=== PATIENT | male | born 1955 | race Caucasian/White ===

== ENCOUNTER 2020-02-22 19:15 | Inpatient (IN) | payer MEDICARE, MEDICAID ==
[~2020-02-22] VITALS: Ht 182.9 cm; Wt 86.4 kg
[~2020-02-22 19:15] MED LIST: CHLO100T31 PO; GABA-1181 PO; MIRT30 PO
[2020-02-22] MEDS ORDERED: HYDR-4031 PO (19:44)
[2020-02-22] MEDS ORDERED: AMLO-257 PO (19:44)
[2020-02-22] MEDS ORDERED: DULO20CA27 PO ×2 (19:44→19:49)
[2020-02-22] MEDS ORDERED: TRAZ-186 PO (19:49)
[2020-02-22 20:09] LABS: BASOPHILS % (AUTO) 1.1 % (0.0-2.0); EOSINOPHILS % (AUTO) 1.5 % (1.0-6.0); HEMOGLOBIN 15.1 g/dL (13.5-17.5); LYMPHOCYTES # (AUTO) 2.1 K/uL (1.0-4.8); LYMPHOCYTES % (AUTO) 18.4 % (22.0-44.0); MEAN CORPUSCULAR HEMOGLOBIN 33.3 pg (26.0-34.0); MEAN CORPUSCULAR HGB CONC 33.6 G/dL (31.0-37.0); MEAN CORPUSCULAR VOLUME 99 fL (80-100); MONOCYTES # (AUTO) 0.6 K/uL (0.1-1.0); NEUTROPHILS # (AUTO) 8.6 K/uL (1.8-7.7); PLATELET COUNT (AUTO) 307 K/uL (150-450); RED BLOOD CELL COUNT(AUTO) 4.54 MIL/uL (4.50-5.90); RED CELL DISTRIBUTION WIDTH 14.9 % (11.5-14.5)
[2020-02-22 20:16] LABS: ANION GAP 4 mmol/L (8-16); CALCIUM, TOTAL 8.8 mg/dL (8.8-10.5); CARBON DIOXIDE 30 mmol/L (22-29); CHLORIDE 103 mmol/L (98-107); CREATININE 0.94 mg/dL (0.60-1.30); GLOMERULAR FILTR. RATE CALC > 60 mL/min (>60); GLUCOSE,RANDOM 98 mg/dL (70-110); POTASSIUM 3.6 mmol/L (3.5-5.1); SODIUM SERUM 137 mmol/L (136-145); UREA NITROGEN, BLOOD 7 mg/dL (7-18)
[2020-02-22 20:22] LABS: ACETAMINOPHEN < 2 mcg/mL (10-30); ALANINE AMINOTRANSFERASE 18 U/L (12-78); ALBUMIN 3.4 g/dL (3.4-5.0); ALKALINE PHOSPHATASE 94 U/L (46-116); ASPARTATE AMINOTRANSFERASE 12 U/L (15-37); BILIRUBIN,TOTAL 0.7 mg/dL (0.1-1.0); TOTAL PROTEIN, SERUM 7.4 g/dL (6.4-8.2)
[2020-02-22 20:29] LABS: SALICYLATE < 2.8 mg/dL (2.8-20.0)
[2020-02-23 01:13] VITALS: BP 146/81
[2020-02-23] MEDS: ZOLPIDEM TARTRATE 10 MG TABLET PO PRN (01:31)
[2020-02-23 01:50] LABS: AMPHET/METH SCREEN,URINE NEGATIVE (NEGATIVE); BARBITURATE SCREEN, URINE NEGATIVE (NEGATIVE); BENZODIAZEPINES SCREEN,URINE POSITIVE (NEGATIVE); CANNABINOID SCREEN,URINE NEGATIVE (NEGATIVE); COCAINE SCREEN,URINE NEGATIVE (NEGATIVE); METHADONE SCREEN, URINE NEGATIVE (NEGATIVE); OPIATE SCREEN,URINE NEGATIVE (NEGATIVE)
[2020-02-23 02:05] LABS: PHENCYCLIDINE SCREEN,URINE NEGATIVE (NEGATIVE)
[2020-02-23] MEDS ORDERED: PNEUMOCOCCAL VACCINE POLYVALENT 0.5 ML VIAL [PPSV23] IM ONE (06:00)
[2020-02-23] MEDS ORDERED: ALBUTEROL SULFATE HFA 90 MCG/PUFF 8 GM INHALER IH PRN (07:45)
[2020-02-23] MEDS ORDERED: ONDANSETRON HCL 4 MG TABLET PO PRN (07:45)
[2020-02-23] MEDS ORDERED: MAG HYDROX/AL HYDROX/SIMETH ES 30 ML SUSPENSION UDCUP PO PRN (07:45)
[2020-02-23] MEDS ORDERED: DOCUSATE SODIUM 100 MG CAPSULE PO PRN (07:45)
[2020-02-23] MEDS ORDERED: LOPERAMIDE HCL 2 MG CAPSULE PO PRN (07:45)
[2020-02-23] MEDS ORDERED: CloNIDine HCL 0.1 MG TABLET PO PRN (07:45)
[2020-02-23] MEDS ORDERED: IBUPROFEN 400 MG TABLET PO PRN (07:45)
[2020-02-23] MEDS ORDERED: ACETAMINOPHEN 325 MG TABLET PO PRN (07:45)
[2020-02-23] MEDS ORDERED: GuaiFENesin/D-METHORPHAN [SUGAR-FREE] 200-20MG/10 ML SYRUP UDCUP PO PRN (07:45)
[2020-02-23] MEDS ORDERED: MAGNESIUM HYDROXIDE SUSPENSION 30 ML UDCUP PO PRN (07:45)
[2020-02-23] MEDS ORDERED: PETROLATUM,WHITE 28 GM JELLY TP PRN (07:45)
[2020-02-23 08:02] VITALS: BP 105/59
[2020-02-23 08:19] LABS: CHOL/HDL RATIO 3.5 (4.2-7.3)
[2020-02-23 08:35] VITALS: BP 116/61
[2020-02-23] MEDS: AmLODIPine BESYLATE 5 MG TABLET PO SCH (08:36)
[2020-02-23] MEDS: DULoxetine HCL 60 MG CAPSULE PO SCH (09:10)
[2020-02-23] MEDS: GABAPENTIN 300 MG CAPSULE PO SCH ×3 (09:10→16:29)
[2020-02-23 16:07] VITALS: BP 131/62
[2020-02-23] MEDS: TraZODone HCL 100 MG TABLET PO SCH (20:50)
[2020-02-24 00:16] VITALS: BP 130/61
[2020-02-24 08:05] VITALS: BP 118/60
[2020-02-24] MEDS: GABAPENTIN 300 MG CAPSULE PO SCH ×3 (08:43→16:31)
[2020-02-24] MEDS: DULoxetine HCL 60 MG CAPSULE PO SCH (08:47)
[2020-02-24] MEDS: AmLODIPine BESYLATE 5 MG TABLET PO SCH (09:00)
[2020-02-24 16:12] VITALS: BP 116/64
[2020-02-24] MEDS: TraZODone HCL 100 MG TABLET PO SCH (20:35)
[2020-02-25 05:42] VITALS: BP 128/72
[2020-02-25] MEDS: GABAPENTIN 300 MG CAPSULE PO SCH ×3 (08:30→16:15)
[2020-02-25] MEDS: DULoxetine HCL 60 MG CAPSULE PO SCH (08:30)
[2020-02-25] MEDS: AmLODIPine BESYLATE 5 MG TABLET PO SCH (08:30)
[2020-02-25 08:36] LABS: APPEARANCE,URINE CLEAR (CLEAR); GLUCOSE, URINE (UA) NEGATIVE (NEGATIVE); KETONES,URINE NEGATIVE (NEGATIVE); LEUKOCYTE ESTERASE ,URINE NEGATIVE (NEGATIVE); NITRATE,URINE NEGATIVE (NEGATIVE); OCCULT BLOOD,URINE NEGATIVE (NEGATIVE); PH,URINE 6.5 (5.0-8.0); PROTEIN,URINE NEGATIVE (NEGATIVE)
[2020-02-25 08:57] LABS: BILIRUBIN,URINE PRELIM. POSITIVE (NEGATIVE)
[2020-02-25 08:58] VITALS: BP 113/57
[2020-02-25 16:06] VITALS: BP 106/64
[2020-02-25] MEDS: TraZODone HCL 100 MG TABLET PO SCH (20:08)
[2020-02-25] MEDS: NICOTINE 14 MG/24 HOUR PATCH TD PRN (20:28)
[2020-02-26 00:26] VITALS: BP 118/63
[2020-02-26] MEDS: ZOLPIDEM TARTRATE 10 MG TABLET PO PRN (00:26)
[2020-02-26 03:36] VITALS: BP 126/65
[2020-02-26] MEDS: LORazepam 2 MG TABLET PO PRN ×2 (03:36→21:13)
[2020-02-26] MEDS: GABAPENTIN 300 MG CAPSULE PO SCH ×3 (08:29→16:21)
[2020-02-26] MEDS: AmLODIPine BESYLATE 5 MG TABLET PO SCH (08:29)
[2020-02-26] MEDS: DULoxetine HCL 60 MG CAPSULE PO SCH (08:29)
[2020-02-26 09:38] VITALS: BP 111/66
[2020-02-26 16:07] VITALS: BP 108/60
[2020-02-26] MEDS: TraZODone HCL 100 MG TABLET PO SCH (20:17)
[2020-02-26] MEDS: NICOTINE 14 MG/24 HOUR PATCH TD PRN (20:57)
[2020-02-27 01:17] VITALS: BP 110/63
[2020-02-27 08:06] VITALS: BP 130/76
[2020-02-27] MEDS: AmLODIPine BESYLATE 5 MG TABLET PO SCH (09:15)
[2020-02-27] MEDS: GABAPENTIN 300 MG CAPSULE PO SCH ×3 (09:15→16:29)
[2020-02-27] MEDS: DULoxetine HCL 60 MG CAPSULE PO SCH (09:15)
[2020-02-27 16:02] VITALS: BP 110/67
[2020-02-27] MEDS: TraZODone HCL 100 MG TABLET PO SCH (20:57)
[2020-02-28] VITALS: BP 111/62
[2020-02-28 08:02] VITALS: BP 128/96
[2020-02-28] MEDS: AmLODIPine BESYLATE 5 MG TABLET PO SCH (09:08)
[2020-02-28] MEDS: GABAPENTIN 300 MG CAPSULE PO SCH ×3 (09:08→16:31)
[2020-02-28] MEDS: DULoxetine HCL 60 MG CAPSULE PO SCH (09:08)
[2020-02-28 16:01] VITALS: BP 103/62
[2020-02-28] MEDS: TraZODone HCL 100 MG TABLET PO SCH (21:01)
[2020-02-28] MEDS: LORazepam 2 MG TABLET PO PRN (21:24)
[2020-02-29 00:22] VITALS: BP 104/60
[2020-02-29 08:01] VITALS: BP 115/61
[2020-02-29] MEDS: AmLODIPine BESYLATE 5 MG TABLET PO SCH (08:06)
[2020-02-29] MEDS: GABAPENTIN 300 MG CAPSULE PO SCH ×3 (08:06→16:19)
[2020-02-29] MEDS: DULoxetine HCL 60 MG CAPSULE PO SCH (08:06)
[2020-02-29] MEDS: LORazepam 2 MG TABLET PO PRN ×2 (13:26→21:34)
[2020-02-29 16:24] VITALS: BP 116/62
[2020-02-29] MEDS: NICOTINE 14 MG/24 HOUR PATCH TD PRN (16:37)
[2020-02-29] MEDS: TraZODone HCL 100 MG TABLET PO SCH (20:52)
[2020-03-01 06:03] VITALS: BP 116/63
[2020-03-01 08:33] VITALS: BP 104/62
[2020-03-01] MEDS: AmLODIPine BESYLATE 5 MG TABLET PO SCH (09:36)
[2020-03-01] MEDS: GABAPENTIN 300 MG CAPSULE PO SCH ×3 (09:36→16:33)
[2020-03-01] MEDS: DULoxetine HCL 60 MG CAPSULE PO SCH (09:45)
[2020-03-01 16:02] VITALS: BP 122/69
[2020-03-01] MEDS: TraZODone HCL 100 MG TABLET PO SCH (20:23)
[2020-03-01] MEDS: LORazepam 2 MG TABLET PO PRN (21:43)
[2020-03-02 05:29] VITALS: BP 104/63
[2020-03-02 08:14] VITALS: BP 116/68
[2020-03-02] MEDS: AmLODIPine BESYLATE 5 MG TABLET PO SCH (08:26)
[2020-03-02] MEDS: GABAPENTIN 300 MG CAPSULE PO SCH ×3 (08:26→16:30)
[2020-03-02] MEDS: DULoxetine HCL 60 MG CAPSULE PO SCH (08:26)
[2020-03-02 16:06] VITALS: BP 109/62
[2020-03-02] MEDS: TraZODone HCL 100 MG TABLET PO SCH (20:43)
[2020-03-02] MEDS: LORazepam 2 MG TABLET PO PRN (21:43)
[2020-03-03 05:38] VITALS: BP 110/72
[2020-03-03 08:02] VITALS: BP 113/62
[2020-03-03] MEDS: DULoxetine HCL 60 MG CAPSULE PO SCH (08:55)
[2020-03-03] MEDS: GABAPENTIN 300 MG CAPSULE PO SCH ×3 (08:55→16:36)
[2020-03-03] MEDS: AmLODIPine BESYLATE 5 MG TABLET PO SCH (08:55)
[2020-03-03 16:02] VITALS: BP 110/66
[2020-03-03] MEDS: ARIPiprazole 2 MG TABLET PO SCH (21:04)
[2020-03-03] MEDS: TraZODone HCL 100 MG TABLET PO SCH (21:04)
[2020-03-03] MEDS: LORazepam 2 MG TABLET PO PRN (21:24)
[2020-03-04 00:02] VITALS: BP 108/69
[2020-03-04] MEDS: DULoxetine HCL 60 MG CAPSULE PO SCH (08:11)
[2020-03-04] MEDS: AmLODIPine BESYLATE 5 MG TABLET PO SCH (08:12)
[2020-03-04] MEDS: NICOTINE 14 MG/24 HOUR PATCH TD SCH (08:12)
[2020-03-04] MEDS: GABAPENTIN 300 MG CAPSULE PO SCH ×3 (08:12→18:05)
[2020-03-04 08:41] VITALS: BP 112/72
[2020-03-04 16:13] VITALS: BP 124/88
[2020-03-04] MEDS: ARIPiprazole 2 MG TABLET PO SCH (20:43)
[2020-03-04] MEDS: TraZODone HCL 100 MG TABLET PO SCH (20:43)
[2020-03-05 06:14] VITALS: BP 120/79
[2020-03-05 09:02] VITALS: BP 106/65
[2020-03-05] MEDS: AmLODIPine BESYLATE 5 MG TABLET PO SCH (09:13)
[2020-03-05] MEDS: GABAPENTIN 300 MG CAPSULE PO SCH ×3 (09:13→17:07)
[2020-03-05] MEDS: DULoxetine HCL 60 MG CAPSULE PO SCH (09:14)
[2020-03-05] MEDS: NICOTINE 14 MG/24 HOUR PATCH TD SCH (09:15)
[2020-03-05] MEDS: LORazepam 2 MG TABLET PO PRN (14:43)
[2020-03-05 16:04] VITALS: BP 109/71
[2020-03-05] MEDS: TraZODone HCL 100 MG TABLET PO SCH (21:17)
[2020-03-05] MEDS: ARIPiprazole 2 MG TABLET PO SCH (21:17)
[2020-03-05] MEDS: ZOLPIDEM TARTRATE 10 MG TABLET PO PRN (22:32)
[2020-03-06 06:47] VITALS: BP 111/68
[2020-03-06 08:47] VITALS: BP 130/60
[2020-03-06] MEDS: GABAPENTIN 300 MG CAPSULE PO SCH ×3 (08:49→16:26)
[2020-03-06] MEDS: AmLODIPine BESYLATE 5 MG TABLET PO SCH (08:49)
[2020-03-06] MEDS: NICOTINE 14 MG/24 HOUR PATCH TD SCH (08:56)
[2020-03-06] MEDS: DULoxetine HCL 30 MG CAPSULE PO SCH (09:36)
[2020-03-06 16:03] VITALS: BP 109/65
[2020-03-06] MEDS: LORazepam 2 MG TABLET PO PRN (17:01)
[2020-03-06] MEDS: TraZODone HCL 100 MG TABLET PO SCH (20:25)
[2020-03-06] MEDS: ARIPiprazole 2 MG TABLET PO SCH (20:25)
[2020-03-07 00:44] VITALS: BP 111/67
[2020-03-07 08:10] VITALS: BP 116/74
[2020-03-07] MEDS: NICOTINE 14 MG/24 HOUR PATCH TD SCH (08:13)
[2020-03-07] MEDS: AmLODIPine BESYLATE 5 MG TABLET PO SCH (08:13)
[2020-03-07] MEDS: GABAPENTIN 300 MG CAPSULE PO SCH ×3 (08:13→16:31)
[2020-03-07] MEDS: DULoxetine HCL 30 MG CAPSULE PO SCH (08:13)
[2020-03-07] MEDS: LORazepam 2 MG TABLET PO PRN (15:55)
[2020-03-07 16:03] VITALS: BP 120/60
[2020-03-07] MEDS: ARIPiprazole 2 MG TABLET PO SCH (20:59)
[2020-03-07] MEDS: TraZODone HCL 100 MG TABLET PO SCH (21:00)
[2020-03-08 05:54] VITALS: BP 133/66
[2020-03-08 08:03] VITALS: BP 114/68
[2020-03-08] MEDS: AmLODIPine BESYLATE 5 MG TABLET PO SCH (08:28)
[2020-03-08] MEDS: NICOTINE 14 MG/24 HOUR PATCH TD SCH (08:28)
[2020-03-08] MEDS: DULoxetine HCL 30 MG CAPSULE PO SCH (08:28)
[2020-03-08] MEDS: GABAPENTIN 300 MG CAPSULE PO SCH ×3 (08:28→16:32)
[2020-03-08] MEDS: LORazepam 2 MG TABLET PO PRN (12:49)
[2020-03-08 16:02] VITALS: BP 114/62
[2020-03-08] MEDS: ARIPiprazole 2 MG TABLET PO SCH (20:58)
[2020-03-08] MEDS: TraZODone HCL 100 MG TABLET PO SCH (20:59)
[2020-03-09 05:42] VITALS: BP 131/86
[2020-03-09 08:05] VITALS: BP 116/70
[2020-03-09] MEDS: AmLODIPine BESYLATE 5 MG TABLET PO SCH (08:10)
[2020-03-09] MEDS: DULoxetine HCL 30 MG CAPSULE PO SCH (08:10)
[2020-03-09] MEDS: GABAPENTIN 300 MG CAPSULE PO SCH ×3 (08:10→16:51)
[2020-03-09] MEDS: NICOTINE 14 MG/24 HOUR PATCH TD SCH (08:11)
[2020-03-09 16:02] VITALS: BP 111/63
[2020-03-09] MEDS: LORazepam 2 MG TABLET PO PRN (16:51)
[2020-03-09] MEDS: ARIPiprazole 2 MG TABLET PO SCH (20:35)
[2020-03-09] MEDS: TraZODone HCL 100 MG TABLET PO SCH (20:36)
[2020-03-10 05:51] VITALS: BP 111/64
[2020-03-10 07:58] LABS: BASOPHILS % (AUTO) 0.5 % (0.0-2.0); EOSINOPHILS % (AUTO) 8.1 % (1.0-6.0); HEMATOCRIT 36.3 % (41-53); LYMPHOCYTES # (AUTO) 1.7 K/uL (1.0-4.8); LYMPHOCYTES % (AUTO) 47.1 % (22.0-44.0); MEAN CORPUSCULAR HGB CONC 33.1 G/dL (31.0-37.0); MEAN CORPUSCULAR VOLUME 91 fL (80-100); MONOCYTES # (AUTO) 0.5 K/uL (0.1-1.0); MONOCYTES % (AUTO) 12.7 % (2.0-9.0); NEUTROPHILS # (AUTO) 1.2 K/uL (1.8-7.7); NEUTROPHILS % (AUTO) 31.6 % (40.0-70.0); PLATELET COUNT (AUTO) 230 K/uL (150-450); RED CELL DISTRIBUTION WIDTH 13.9 % (11.5-14.5)
[2020-03-10 08:06] VITALS: BP 120/74
[2020-03-10] MEDS: GABAPENTIN 300 MG CAPSULE PO SCH ×3 (08:25→16:25)
[2020-03-10] MEDS: NICOTINE 14 MG/24 HOUR PATCH TD SCH (08:25)
[2020-03-10] MEDS: DULoxetine HCL 30 MG CAPSULE PO SCH (08:25)
[2020-03-10] MEDS: OXYBUTYNIN CHLORIDE 5 MG TABLET PO SCH (08:25)
[2020-03-10] MEDS: AmLODIPine BESYLATE 5 MG TABLET PO SCH (08:25)
[2020-03-10] MEDS: LORazepam 2 MG TABLET PO PRN (19:20)
[2020-03-10 19:22] VITALS: BP 110/65
[2020-03-10] MEDS: TraZODone HCL 100 MG TABLET PO SCH (20:49)
[2020-03-10] MEDS: ARIPiprazole 5 MG TABLET PO SCH (20:49)
[2020-03-11 06:19] VITALS: BP 129/76
[2020-03-11 08:03] LABS: COVID AG,FIA SOURCE NASOPHARYNGEAL
[2020-03-11 08:08] VITALS: BP 126/72
[2020-03-11] MEDS: DULoxetine HCL 30 MG CAPSULE PO SCH (08:37)
[2020-03-11] MEDS: OXYBUTYNIN CHLORIDE 5 MG TABLET PO SCH (08:37)
[2020-03-11] MEDS: GABAPENTIN 300 MG CAPSULE PO SCH ×3 (08:37→16:25)
[2020-03-11] MEDS: AmLODIPine BESYLATE 5 MG TABLET PO SCH (08:37)
[2020-03-11] MEDS: NICOTINE 14 MG/24 HOUR PATCH TD SCH (08:38)
[2020-03-11 16:02] VITALS: BP 108/67
[2020-03-11] MEDS: LORazepam 2 MG TABLET PO PRN (17:06)
[2020-03-11] MEDS: ARIPiprazole 5 MG TABLET PO SCH (20:25)
[2020-03-11] MEDS: HALOPERIDOL 5 MG TABLET PO PRN (20:25)
[2020-03-11] MEDS: TraZODone HCL 100 MG TABLET PO SCH (21:12)
[2020-03-12 00:54] VITALS: BP 109/76
[2020-03-12 08:07] VITALS: BP 134/68
[2020-03-12] MEDS: AmLODIPine BESYLATE 5 MG TABLET PO SCH (08:48)
[2020-03-12] MEDS: NICOTINE 14 MG/24 HOUR PATCH TD SCH (08:48)
[2020-03-12] MEDS: DULoxetine HCL 30 MG CAPSULE PO SCH (08:48)
[2020-03-12] MEDS: GABAPENTIN 300 MG CAPSULE PO SCH ×3 (08:50→16:22)
[2020-03-12] MEDS: OXYBUTYNIN CHLORIDE 5 MG TABLET PO SCH (08:50)
[2020-03-12 16:13] VITALS: BP 112/67
[2020-03-12] MEDS: LORazepam 2 MG TABLET PO PRN (18:38)
[2020-03-12] MEDS: ARIPiprazole 5 MG TABLET PO SCH (20:44)
[2020-03-12] MEDS: TraZODone HCL 100 MG TABLET PO SCH (21:22)
[2020-03-13 06:40] VITALS: BP 116/65
[2020-03-13 08:24] VITALS: BP 129/65
[2020-03-13] MEDS: AmLODIPine BESYLATE 5 MG TABLET PO SCH (08:52)
[2020-03-13] MEDS: GABAPENTIN 300 MG CAPSULE PO SCH ×3 (08:52→16:29)
[2020-03-13] MEDS: DULoxetine HCL 30 MG CAPSULE PO SCH (08:52)
[2020-03-13] MEDS: NICOTINE 14 MG/24 HOUR PATCH TD SCH (09:12)
[2020-03-13] MEDS: OXYBUTYNIN CHLORIDE 5 MG TABLET PO SCH (10:03)
[2020-03-13] MEDS: LORazepam 2 MG TABLET PO PRN (13:22)
[2020-03-13] MEDS: HALOPERIDOL 5 MG TABLET PO PRN (16:01)
[2020-03-13 16:23] VITALS: BP 121/74
[2020-03-13] MEDS: ARIPiprazole 5 MG TABLET PO SCH (21:28)
[2020-03-13] MEDS: TraZODone HCL 100 MG TABLET PO SCH (21:29)
[2020-03-14 00:16] VITALS: BP 129/78
[2020-03-14 08:25] VITALS: BP 113/74
[2020-03-14] MEDS: GABAPENTIN 300 MG CAPSULE PO SCH ×3 (08:40→16:26)
[2020-03-14] MEDS: NICOTINE 14 MG/24 HOUR PATCH TD SCH (08:41)
[2020-03-14] MEDS: AmLODIPine BESYLATE 5 MG TABLET PO SCH (08:41)
[2020-03-14] MEDS: DULoxetine HCL 30 MG CAPSULE PO SCH (08:48)
[2020-03-14] MEDS: OXYBUTYNIN CHLORIDE 5 MG TABLET PO SCH (08:49)
[2020-03-14 16:02] VITALS: BP 117/70
[2020-03-14] MEDS: ARIPiprazole 5 MG TABLET PO SCH (20:22)
[2020-03-14] MEDS: TraZODone HCL 100 MG TABLET PO SCH (20:22)
[2020-03-15 05:42] VITALS: BP 108/60
[2020-03-15] MEDS: AmLODIPine BESYLATE 5 MG TABLET PO SCH (08:33)
[2020-03-15] MEDS: OXYBUTYNIN CHLORIDE 5 MG TABLET PO SCH (08:33)
[2020-03-15] MEDS: GABAPENTIN 300 MG CAPSULE PO SCH ×3 (08:33→16:16)
[2020-03-15] MEDS: NICOTINE 14 MG/24 HOUR PATCH TD SCH (08:33)
[2020-03-15] MEDS: DULoxetine HCL 30 MG CAPSULE PO SCH (08:33)
[2020-03-15 09:01] VITALS: BP 121/66
[2020-03-15] MEDS: LORazepam 2 MG TABLET PO PRN ×2 (13:00→21:00)
[2020-03-15 16:29] VITALS: BP 112/60
[2020-03-15] MEDS: ARIPiprazole 5 MG TABLET PO SCH (20:13)
[2020-03-15] MEDS: TraZODone HCL 100 MG TABLET PO SCH (20:13)
[2020-03-16 05:50] VITALS: BP 100/60
[2020-03-16] MEDS: GABAPENTIN 300 MG CAPSULE PO SCH ×2 (08:11→13:05)
[2020-03-16] MEDS: NICOTINE 14 MG/24 HOUR PATCH TD SCH (08:11)
[2020-03-16] MEDS: OXYBUTYNIN CHLORIDE 5 MG TABLET PO SCH (08:12)
[2020-03-16] MEDS: AmLODIPine BESYLATE 5 MG TABLET PO SCH (08:12)
[2020-03-16] MEDS: DULoxetine HCL 30 MG CAPSULE PO SCH (08:12)
[2020-03-16 08:24] VITALS: BP 111/60
[2020-03-16] MEDS ORDERED: OXYB5XL PO (12:04)
[2020-03-16] MEDS ORDERED: ARIP5TAB8 PO (12:06)
== END 2020-03-16 14:03 | disposition home or self-care (01) | DRG 885 ==
LOC: EMS 19:16 → B2X 21:34
PROVIDERS: ADMIT Psychiatry & Neurology Child & Adolescent Psychiatry; ATTEND Psychiatry & Neurology Child & Adolescent Psychiatry
DX: F25.1 Schizoaffective disorder, depressive type (principal); R45.851 Suicidal ideations; G62.9 Polyneuropathy, unspecified; F17.200 Nicotine dependence, unspecified, uncomplicated; F10.10 Alcohol abuse, uncomplicated; D72.829 Elevated white blood cell count, unspecified; I10 Essential (primary) hypertension; R10.13 Epigastric pain; F41.9 Anxiety disorder, unspecified; Z20.828 Contact with and (suspected) exposure to other viral communicable diseases; Z59.0 Homelessness; Z91.5 Personal history of self-harm; Z79.899 Other long term (current) drug therapy
CPT/HCPCS: 87081; 87426; 93005; G0480; G0481

== ENCOUNTER 2021-02-03 22:04 | Inpatient (IN) | payer MEDICARE, MEDICAID ==
[~2021-02-03] VITALS: Ht 182.9 cm; Wt 84.8 kg
[~2021-02-03 22:04] MED LIST changes: +AMLO-257 PO; +ARIP5TAB37 PO; -CHLO100T31 PO; +DULO20CA27 PO; -MIRT30 PO; +OXYB-34 PO; +TRAZ-186 PO
[2021-02-03 23:00] LABS: BASOPHILS % (AUTO) 0.6 % (0.0-2.0); EOSINOPHILS % (AUTO) 1.7 % (1.0-6.0); HEMATOCRIT 44.2 % (41-53); HEMOGLOBIN 14.8 g/dL (13.5-17.5); LYMPHOCYTES # (AUTO) 2.1 K/uL (1.0-4.8); LYMPHOCYTES % (AUTO) 24.2 % (22.0-44.0); MEAN CORPUSCULAR HEMOGLOBIN 32.7 pg (26.0-34.0); MEAN CORPUSCULAR HGB CONC 33.5 G/dL (31.0-37.0); MEAN CORPUSCULAR VOLUME 98 fL (80-100); NEUTROPHILS # (AUTO) 5.5 K/uL (1.8-7.7); NEUTROPHILS % (AUTO) 62.5 % (40.0-70.0); PLATELET COUNT (AUTO) 310 K/uL (150-450); RED BLOOD CELL COUNT(AUTO) 4.53 MIL/uL (4.50-5.90); RED CELL DISTRIBUTION WIDTH 14.3 % (11.5-14.5)
[2021-02-03 23:01] LABS: COVID AG,FIA SOURCE NASOPHARYNGEAL
[2021-02-03 23:09] LABS: ANION GAP 11 mmol/L (8-16); CALCIUM, TOTAL 8.6 mg/dL (8.8-10.5); CARBON DIOXIDE 28 mmol/L (22-29); CHLORIDE 101 mmol/L (98-107); CREATININE 0.61 mg/dL (0.60-1.30); GLOMERULAR FILTR. RATE CALC > 60 mL/min (>60); GLUCOSE,RANDOM 89 mg/dL (70-110); POTASSIUM 3.1 mmol/L (3.5-5.1); SODIUM SERUM 140 mmol/L (136-145); UREA NITROGEN, BLOOD 11 mg/dL (7-18)
[2021-02-03 23:15] LABS: ALANINE AMINOTRANSFERASE 23 U/L (12-78); ALBUMIN 3.6 g/dL (3.4-5.0); ALKALINE PHOSPHATASE 70 U/L (46-116); ASPARTATE AMINOTRANSFERASE 17 U/L (15-37); BILIRUBIN,TOTAL 0.4 mg/dL (0.1-1.0); TOTAL PROTEIN, SERUM 7.7 g/dL (6.4-8.2)
[2021-02-03] MEDS ORDERED: POTASSIUM CHLORIDE 20 MEQ ER TABLET PO ONE (23:45)
[2021-02-04] MEDS ORDERED: LORazepam 2 MG TABLET PO PRN (00:45)
[2021-02-04] MEDS ORDERED: HALOPERIDOL 5 MG TABLET PO PRN (00:45)
[2021-02-04] MEDS: ZOLPIDEM TARTRATE 10 MG TABLET PO PRN ×2 (03:00→22:33)
[2021-02-04 04:01] VITALS: BP 110/64
[2021-02-04] MEDS ORDERED: PNEUMOCOCCAL VACCINE POLYVALENT 0.5 ML VIAL [PPSV23] IM. ONE (04:30)
[2021-02-04 08:15] VITALS: BP 140/74
[2021-02-04] MEDS ORDERED: MAG HYDROX/AL HYDROX/SIMETH ES 30 ML SUSPENSION UDCUP PO PRN (10:00)
[2021-02-04] MEDS ORDERED: CloNIDine HCL 0.1 MG TABLET PO PRN (10:00)
[2021-02-04] MEDS ORDERED: MAGNESIUM HYDROXIDE SUSPENSION 30 ML UDCUP PO PRN (10:00)
[2021-02-04] MEDS ORDERED: BACITRACIN 28 GM OINTMENT TP PRN (10:00)
[2021-02-04] MEDS ORDERED: BENZOCAINE/MENTHOL LOZENGE PO PRN (10:00)
[2021-02-04] MEDS ORDERED: LOPERAMIDE HCL 2 MG CAPSULE PO PRN (10:00)
[2021-02-04] MEDS ORDERED: OMEPRAZOLE 20 MG CAPSULE PO PRN (10:00)
[2021-02-04] MEDS ORDERED: DOCUSATE SODIUM 100 MG CAPSULE PO PRN (10:00)
[2021-02-04] MEDS ORDERED: PETROLATUM,WHITE 28 GM JELLY TP PRN (10:00)
[2021-02-04] MEDS ORDERED: ONDANSETRON HCL 4 MG TABLET PO PRN (10:00)
[2021-02-04] MEDS ORDERED: ACETAMINOPHEN 325 MG TABLET PO PRN (10:00)
[2021-02-04] MEDS ORDERED: ALBUTEROL SULFATE HFA 90 MCG/PUFF 8 GM INHALER IH PRN (10:00)
[2021-02-04] MEDS ORDERED: IBUPROFEN 600 MG TABLET PO PRN (10:00)
[2021-02-04] MEDS: DULoxetine HCL 30 MG CAPSULE PO SCH (13:02)
[2021-02-04] MEDS: OXYBUTYNIN CHLORIDE 5 MG ER TABLET PO SCH (13:03)
[2021-02-04] MEDS: AmLODIPine BESYLATE 5 MG TABLET PO SCH (13:03)
[2021-02-04] MEDS: GABAPENTIN 300 MG CAPSULE PO SCH ×2 (13:05→16:11)
[2021-02-04 13:15] VITALS: BP 120/64
[2021-02-04 16:05] VITALS: BP 123/68
[2021-02-04] MEDS: ZINC OXIDE 16% PASTE 57 GM TUBE TP SCH (16:12)
[2021-02-04] MEDS: TraZODone HCL 100 MG TABLET PO SCH (20:04)
[2021-02-04] MEDS: ARIPiprazole 5 MG TABLET PO SCH (20:05)
[2021-02-05 01:05] VITALS: BP 125/65
[2021-02-05 08:01] VITALS: BP 131/76
[2021-02-05] MEDS: OXYBUTYNIN CHLORIDE 5 MG ER TABLET PO SCH (08:07)
[2021-02-05] MEDS: GABAPENTIN 300 MG CAPSULE PO SCH ×3 (08:07→16:05)
[2021-02-05] MEDS: DULoxetine HCL 30 MG CAPSULE PO SCH (08:07)
[2021-02-05] MEDS: AmLODIPine BESYLATE 5 MG TABLET PO SCH (08:07)
[2021-02-05] MEDS: ZINC OXIDE 16% PASTE 57 GM TUBE TP SCH ×2 (08:16→16:21)
[2021-02-05 16:07] VITALS: BP 104/62
[2021-02-05] MEDS: ARIPiprazole 5 MG TABLET PO SCH (20:18)
[2021-02-05] MEDS: TraZODone HCL 100 MG TABLET PO SCH (20:18)
[2021-02-06 00:30] VITALS: BP 128/72
[2021-02-06 08:01] VITALS: BP 127/67
[2021-02-06] MEDS: AmLODIPine BESYLATE 5 MG TABLET PO SCH (08:17)
[2021-02-06] MEDS: DULoxetine HCL 30 MG CAPSULE PO SCH (08:17)
[2021-02-06] MEDS: GABAPENTIN 300 MG CAPSULE PO SCH ×3 (08:17→16:16)
[2021-02-06] MEDS: OXYBUTYNIN CHLORIDE 5 MG ER TABLET PO SCH (08:18)
[2021-02-06] MEDS: ZINC OXIDE 16% PASTE 57 GM TUBE TP SCH ×3 (08:19→16:32)
[2021-02-06 16:05] VITALS: BP 107/55
[2021-02-06] MEDS: NICOTINE POLACRILEX 2 MG LOZENGE PO PRN (18:03)
[2021-02-06] MEDS: TraZODone HCL 100 MG TABLET PO SCH (20:30)
[2021-02-06] MEDS: ARIPiprazole 5 MG TABLET PO SCH (20:30)
[2021-02-07 00:42] VITALS: BP 133/87
[2021-02-07 06:09] VITALS: BP 111/62
[2021-02-07 08:10] VITALS: BP 149/76
[2021-02-07] MEDS: DULoxetine HCL 30 MG CAPSULE PO SCH (08:21)
[2021-02-07] MEDS: OXYBUTYNIN CHLORIDE 5 MG ER TABLET PO SCH (08:21)
[2021-02-07] MEDS: AmLODIPine BESYLATE 5 MG TABLET PO SCH (08:21)
[2021-02-07] MEDS: GABAPENTIN 300 MG CAPSULE PO SCH ×3 (08:21→16:28)
[2021-02-07] MEDS: ZINC OXIDE 16% PASTE 57 GM TUBE TP SCH ×2 (08:23→16:29)
[2021-02-07] MEDS: NICOTINE POLACRILEX 2 MG LOZENGE PO PRN (12:25)
[2021-02-07 16:02] VITALS: BP 110/68
[2021-02-07] MEDS: ARIPiprazole 5 MG TABLET PO SCH (20:30)
[2021-02-07] MEDS: TraZODone HCL 100 MG TABLET PO SCH (20:30)
[2021-02-08 04:40] VITALS: BP 133/76
[2021-02-08 08:14] VITALS: BP 135/60
[2021-02-08] MEDS: AmLODIPine BESYLATE 5 MG TABLET PO SCH (08:46)
[2021-02-08] MEDS: DULoxetine HCL 30 MG CAPSULE PO SCH (08:46)
[2021-02-08] MEDS: OXYBUTYNIN CHLORIDE 5 MG ER TABLET PO SCH (08:46)
[2021-02-08] MEDS: GABAPENTIN 300 MG CAPSULE PO SCH ×3 (08:46→16:27)
[2021-02-08] MEDS: ZINC OXIDE 16% PASTE 57 GM TUBE TP SCH ×2 (08:47→16:27)
[2021-02-08 16:03] VITALS: BP 100/57
[2021-02-08] MEDS: NICOTINE POLACRILEX 2 MG LOZENGE PO PRN (19:10)
[2021-02-08] MEDS: TraZODone HCL 100 MG TABLET PO SCH (20:31)
[2021-02-08] MEDS: ARIPiprazole 5 MG TABLET PO SCH (20:31)
[2021-02-09 00:44] VITALS: BP 110/62
[2021-02-09 08:22] VITALS: BP 127/69
[2021-02-09 08:24] LABS: COVID AG,FIA SOURCE NASOPHARYNGEAL
[2021-02-09] MEDS: DULoxetine HCL 30 MG CAPSULE PO SCH (08:47)
[2021-02-09] MEDS: GABAPENTIN 300 MG CAPSULE PO SCH ×3 (08:47→16:29)
[2021-02-09] MEDS: ZINC OXIDE 16% PASTE 57 GM TUBE TP SCH ×2 (08:47→16:31)
[2021-02-09] MEDS: OXYBUTYNIN CHLORIDE 5 MG ER TABLET PO SCH (08:47)
[2021-02-09] MEDS: AmLODIPine BESYLATE 5 MG TABLET PO SCH (08:47)
[2021-02-09 16:09] VITALS: BP 120/66
[2021-02-09] MEDS: ARIPiprazole 5 MG TABLET PO SCH (20:28)
[2021-02-09] MEDS: TraZODone HCL 100 MG TABLET PO SCH (20:28)
[2021-02-09] MEDS: NICOTINE POLACRILEX 2 MG LOZENGE PO PRN (21:21)
[2021-02-10 01:01] VITALS: BP 113/53
[2021-02-10 08:08] VITALS: BP 127/61
[2021-02-10] MEDS: OXYBUTYNIN CHLORIDE 5 MG ER TABLET PO SCH (08:25)
[2021-02-10] MEDS: GABAPENTIN 300 MG CAPSULE PO SCH ×3 (08:25→16:00)
[2021-02-10] MEDS: AmLODIPine BESYLATE 5 MG TABLET PO SCH (08:25)
[2021-02-10] MEDS: ZINC OXIDE 16% PASTE 57 GM TUBE TP SCH ×2 (08:25→16:47)
[2021-02-10] MEDS: DULoxetine HCL 30 MG CAPSULE PO SCH (08:25)
[2021-02-10] MEDS: THIAMINE 100 MG TABLET PO SCH (11:55)
[2021-02-10] MEDS: FOLIC ACID 1 MG TABLET PO SCH (11:55)
[2021-02-10] MEDS: MULTIVITAMINS WITH MINERALS, THERAPEUTIC TABLET PO SCH (11:55)
[2021-02-10 16:00] VITALS: BP 113/61
[2021-02-10] MEDS: NICOTINE POLACRILEX 2 MG LOZENGE PO PRN (16:03)
[2021-02-10] MEDS: ARIPiprazole 5 MG TABLET PO SCH (20:31)
[2021-02-10] MEDS: TraZODone HCL 100 MG TABLET PO SCH (20:31)
[2021-02-11 02:07] VITALS: BP 115/63
[2021-02-11 08:09] VITALS: BP 113/61
[2021-02-11] MEDS: AmLODIPine BESYLATE 5 MG TABLET PO SCH (08:32)
[2021-02-11] MEDS: THIAMINE 100 MG TABLET PO SCH (08:32)
[2021-02-11] MEDS: OXYBUTYNIN CHLORIDE 5 MG ER TABLET PO SCH (08:32)
[2021-02-11] MEDS: MULTIVITAMINS WITH MINERALS, THERAPEUTIC TABLET PO SCH (08:32)
[2021-02-11] MEDS: GABAPENTIN 300 MG CAPSULE PO SCH ×3 (08:32→16:28)
[2021-02-11] MEDS: DULoxetine HCL 30 MG CAPSULE PO SCH (08:32)
[2021-02-11] MEDS: FOLIC ACID 1 MG TABLET PO SCH (08:32)
[2021-02-11] MEDS: ZINC OXIDE 16% PASTE 57 GM TUBE TP SCH ×2 (08:33→16:42)
[2021-02-11 16:15] VITALS: BP 128/70
[2021-02-11] MEDS: NICOTINE POLACRILEX 2 MG LOZENGE PO PRN (16:28)
[2021-02-11] MEDS: ARIPiprazole 5 MG TABLET PO SCH (20:24)
[2021-02-11] MEDS: TraZODone HCL 100 MG TABLET PO SCH (20:24)
[2021-02-12 05:59] VITALS: BP 114/68
[2021-02-12 08:06] VITALS: BP 124/66
[2021-02-12] MEDS: ZINC OXIDE 16% PASTE 57 GM TUBE TP SCH ×2 (09:09→16:28)
[2021-02-12] MEDS: OXYBUTYNIN CHLORIDE 5 MG ER TABLET PO SCH (09:09)
[2021-02-12] MEDS: MULTIVITAMINS WITH MINERALS, THERAPEUTIC TABLET PO SCH (09:09)
[2021-02-12] MEDS: AmLODIPine BESYLATE 5 MG TABLET PO SCH (09:09)
[2021-02-12] MEDS: GABAPENTIN 300 MG CAPSULE PO SCH ×3 (09:09→16:27)
[2021-02-12] MEDS: DULoxetine HCL 30 MG CAPSULE PO SCH (09:09)
[2021-02-12] MEDS: THIAMINE 100 MG TABLET PO SCH (09:09)
[2021-02-12] MEDS: FOLIC ACID 1 MG TABLET PO SCH (09:09)
[2021-02-12 16:04] VITALS: BP 108/61
[2021-02-12] MEDS: ARIPiprazole 5 MG TABLET PO SCH (20:29)
[2021-02-12] MEDS: TraZODone HCL 100 MG TABLET PO SCH (20:29)
[2021-02-13 02:08] VITALS: BP 102/62
[2021-02-13 08:02] VITALS: BP 115/61
[2021-02-13] MEDS: DULoxetine HCL 30 MG CAPSULE PO SCH (09:37)
[2021-02-13] MEDS: ZINC OXIDE 16% PASTE 57 GM TUBE TP SCH ×2 (09:38→16:40)
[2021-02-13] MEDS: GABAPENTIN 300 MG CAPSULE PO SCH ×3 (09:38→16:10)
[2021-02-13] MEDS: OXYBUTYNIN CHLORIDE 5 MG ER TABLET PO SCH (09:38)
[2021-02-13] MEDS: THIAMINE 100 MG TABLET PO SCH (09:38)
[2021-02-13] MEDS: AmLODIPine BESYLATE 5 MG TABLET PO SCH (09:38)
[2021-02-13] MEDS: MULTIVITAMINS WITH MINERALS, THERAPEUTIC TABLET PO SCH (09:38)
[2021-02-13] MEDS: FOLIC ACID 1 MG TABLET PO SCH (09:38)
[2021-02-13] MEDS: NICOTINE POLACRILEX 2 MG LOZENGE PO PRN (16:10)
[2021-02-13 16:20] VITALS: BP 115/57
[2021-02-13] MEDS: ARIPiprazole 5 MG TABLET PO SCH (20:47)
[2021-02-13] MEDS: TraZODone HCL 100 MG TABLET PO SCH (20:47)
[2021-02-13] MEDS ORDERED: HYPROMELLOSE 0.5% 15 ML OPHTHALMIC SOLUTION OU PRN (21:00)
[2021-02-14 00:55] VITALS: BP 111/62
[2021-02-14 08:10] VITALS: BP 129/66
[2021-02-14] MEDS: MULTIVITAMINS WITH MINERALS, THERAPEUTIC TABLET PO SCH (08:55)
[2021-02-14] MEDS: AmLODIPine BESYLATE 5 MG TABLET PO SCH (08:55)
[2021-02-14] MEDS: FOLIC ACID 1 MG TABLET PO SCH (08:55)
[2021-02-14] MEDS: DULoxetine HCL 30 MG CAPSULE PO SCH (08:55)
[2021-02-14] MEDS: OXYBUTYNIN CHLORIDE 5 MG ER TABLET PO SCH (08:55)
[2021-02-14] MEDS: THIAMINE 100 MG TABLET PO SCH (08:55)
[2021-02-14] MEDS: GABAPENTIN 300 MG CAPSULE PO SCH ×3 (08:55→16:01)
[2021-02-14] MEDS: ZINC OXIDE 16% PASTE 57 GM TUBE TP SCH ×2 (08:56→16:39)
[2021-02-14 16:01] VITALS: BP 121/63
[2021-02-14] MEDS: NICOTINE POLACRILEX 2 MG LOZENGE PO PRN (19:15)
[2021-02-14] MEDS: ARIPiprazole 5 MG TABLET PO SCH (20:16)
[2021-02-14] MEDS: TraZODone HCL 100 MG TABLET PO SCH (20:16)
[2021-02-15 00:19] VITALS: BP 106/65
[2021-02-15] MEDS: AmLODIPine BESYLATE 5 MG TABLET PO SCH (08:20)
[2021-02-15] MEDS: MULTIVITAMINS WITH MINERALS, THERAPEUTIC TABLET PO SCH (08:20)
[2021-02-15] MEDS: THIAMINE 100 MG TABLET PO SCH (08:20)
[2021-02-15] MEDS: FOLIC ACID 1 MG TABLET PO SCH (08:20)
[2021-02-15] MEDS: OXYBUTYNIN CHLORIDE 5 MG ER TABLET PO SCH (08:20)
[2021-02-15] MEDS: GABAPENTIN 300 MG CAPSULE PO SCH ×3 (08:20→16:28)
[2021-02-15] MEDS: DULoxetine HCL 30 MG CAPSULE PO SCH (08:26)
[2021-02-15] MEDS: ZINC OXIDE 16% PASTE 57 GM TUBE TP SCH ×2 (08:29→16:28)
[2021-02-15 09:55] VITALS: BP 124/55
[2021-02-15 16:09] VITALS: BP 120/62
[2021-02-15] MEDS: TraZODone HCL 100 MG TABLET PO SCH (20:33)
[2021-02-15] MEDS: ARIPiprazole 5 MG TABLET PO SCH (20:33)
[2021-02-15] MEDS: ZOLPIDEM TARTRATE 10 MG TABLET PO PRN (21:36)
[2021-02-16 00:47] VITALS: BP 142/60
[2021-02-16 07:01] LABS: COVID AG,FIA SOURCE NASOPHARYNGEAL
[2021-02-16 08:02] VITALS: BP 126/63
[2021-02-16] MEDS: MULTIVITAMINS WITH MINERALS, THERAPEUTIC TABLET PO SCH (09:13)
[2021-02-16] MEDS: AmLODIPine BESYLATE 5 MG TABLET PO SCH (09:13)
[2021-02-16] MEDS: THIAMINE 100 MG TABLET PO SCH (09:13)
[2021-02-16] MEDS: DULoxetine HCL 30 MG CAPSULE PO SCH (09:13)
[2021-02-16] MEDS: GABAPENTIN 300 MG CAPSULE PO SCH ×3 (09:13→16:21)
[2021-02-16] MEDS: FOLIC ACID 1 MG TABLET PO SCH (09:13)
[2021-02-16] MEDS: OXYBUTYNIN CHLORIDE 5 MG ER TABLET PO SCH (09:13)
[2021-02-16] MEDS: ZINC OXIDE 16% PASTE 57 GM TUBE TP SCH (09:14)
[2021-02-16] MEDS ORDERED: TRAZ-257 PO (13:12)
[2021-02-16 16:01] VITALS: BP 107/64
== END 2021-02-16 14:00 | disposition home or self-care (01) | DRG 881 ==
LOC: EMS 22:07 → B2X 02-04 01:00 → B2S 02-04 09:11
PROVIDERS: ADMIT Psychiatry & Neurology Psychiatry; ATTEND Psychiatry & Neurology Psychiatry
DX: F32.9 Major depressive disorder, single episode, unspecified (principal); R45.851 Suicidal ideations; N39.0 Urinary tract infection, site not specified; Z20.822 Contact with and (suspected) exposure to COVID-19; K59.00 Constipation, unspecified; K21.9 Gastro-esophageal reflux disease without esophagitis; J44.9 Chronic obstructive pulmonary disease, unspecified; I10 Essential (primary) hypertension; H57.02 Anisocoria; F10.10 Alcohol abuse, uncomplicated; F22 Delusional disorders; F41.9 Anxiety disorder, unspecified; F17.210 Nicotine dependence, cigarettes, uncomplicated; G47.00 Insomnia, unspecified; Z79.899 Other long term (current) drug therapy; Z91.14 Patient's other noncompliance with medication regimen
CPT/HCPCS: 70450; 80053; 85025; 99285; G0480; Q9967

== ENCOUNTER 2022-07-09 03:29 | Inpatient (IN) | payer MEDICARE, MEDICAID ==
[~2022-07-09] VITALS: Ht 182.9 cm; Wt 80.0 kg
[~2022-07-09 03:29] MED LIST changes: -DULO20CA27 PO; +DULO20CA71 PO; -TRAZ-186 PO; +TRAZ-257 PO
[2022-07-09] MEDS ORDERED: ACETAMINOPHEN 500 MG TABLET PO ONE (03:45)
[2022-07-09 04:13] LABS: COVID AG,FIA SOURCE NASOPHARYNGEAL
[2022-07-09 06:32] LABS: BASOPHILS % (AUTO) 1.1 % (0.0-2.0); EOSINOPHILS % (AUTO) 3.5 % (1.0-6.0); HEMATOCRIT 41.9 % (41-53); HEMOGLOBIN 14.2 g/dL (13.5-17.5); LYMPHOCYTES % (AUTO) 33.4 % (22.0-44.0); MEAN CORPUSCULAR HEMOGLOBIN 34.4 pg (26.0-34.0); MEAN CORPUSCULAR HGB CONC 33.8 G/dL (31.0-37.0); MEAN CORPUSCULAR VOLUME 102 fL (80-100); MONOCYTES # (AUTO) 0.7 K/uL (0.1-1.0); MONOCYTES % (AUTO) 11.7 % (2.0-9.0); NEUTROPHILS # (AUTO) 3.1 K/uL (1.8-7.7); NEUTROPHILS % (AUTO) 50.3 % (40.0-70.0); PLATELET COUNT (AUTO) 306 K/uL (150-450); RED BLOOD CELL COUNT(AUTO) 4.12 MIL/uL (4.50-5.90); RED CELL DISTRIBUTION WIDTH 16.1 % (11.5-14.5)
[2022-07-09 06:50] LABS: ANION GAP 12 mmol/L (8-16); CALCIUM, TOTAL 8.3 mg/dL (8.8-10.5); CARBON DIOXIDE 25 mmol/L (22-29); CHLORIDE 104 mmol/L (98-107); CREATININE 0.64 mg/dL (0.60-1.30); GLOMERULAR FILTR. RATE CALC > 60 mL/min (>60); GLUCOSE,RANDOM 99 mg/dL (70-110); POTASSIUM 3.5 mmol/L (3.5-5.1); SODIUM SERUM 141 mmol/L (136-145); UREA NITROGEN, BLOOD 6 mg/dL (7-18)
[2022-07-09 06:55] LABS: ALANINE AMINOTRANSFERASE 14 U/L (12-78); ALKALINE PHOSPHATASE 89 U/L (46-116); ASPARTATE AMINOTRANSFERASE 19 U/L (15-37); TOTAL PROTEIN, SERUM 7.2 g/dL (6.4-8.2)
[2022-07-09 06:56] LABS: BILIRUBIN,TOTAL < 0.1 mg/dL (0.1-1.0)
[2022-07-09 14:08] LABS: AMPHET/METH SCREEN,URINE NEGATIVE (NEGATIVE); BARBITURATE SCREEN, URINE NEGATIVE (NEGATIVE); BENZODIAZEPINES SCREEN,URINE POSITIVE (NEGATIVE); CANNABINOID SCREEN,URINE NEGATIVE (NEGATIVE); COCAINE SCREEN,URINE NEGATIVE (NEGATIVE); METHADONE SCREEN, URINE NEGATIVE (NEGATIVE); OPIATE SCREEN,URINE NEGATIVE (NEGATIVE)
[2022-07-09 14:09] LABS: PHENCYCLIDINE SCREEN,URINE NEGATIVE (NEGATIVE)
[2022-07-09] MEDS ORDERED: LORazepam 2 MG TABLET PO PRN (16:15)
[2022-07-09] MEDS ORDERED: HALOPERIDOL 5 MG TABLET PO PRN (16:15)
[2022-07-09] MEDS ORDERED: DULO-114 PO (16:16)
[2022-07-10] MEDS ORDERED: ACETAMINOPHEN 325 MG TABLET ONE (04:23)
[2022-07-10 10:45] VITALS: BP 165/64
[2022-07-10] MEDS ORDERED: NICOTINE 14 MG/24 HOUR PATCH TD PRN (13:15)
[2022-07-10] MEDS: ZOLPIDEM TARTRATE 10 MG TABLET PO PRN (21:18)
[2022-07-10] MEDS ORDERED: LOPERAMIDE HCL 2 MG CAPSULE PO PRN (22:30)
[2022-07-10] MEDS ORDERED: MAGNESIUM HYDROXIDE SUSPENSION 30 ML UDCUP PO PRN (22:30)
[2022-07-10] MEDS ORDERED: CloNIDine HCL 0.1 MG TABLET PO PRN (22:30)
[2022-07-10] MEDS ORDERED: ACETAMINOPHEN 325 MG TABLET PO PRN (22:30)
[2022-07-10] MEDS ORDERED: DOCUSATE SODIUM 100 MG CAPSULE PO PRN (22:30)
[2022-07-10] MEDS ORDERED: ONDANSETRON HCL 4 MG TABLET PO PRN (22:30)
[2022-07-10] MEDS ORDERED: IBUPROFEN 400 MG TABLET PO PRN (22:30)
[2022-07-10] MEDS ORDERED: MAG HYDROX/AL HYDROX/SIMETH ES 30 ML SUSPENSION UDCUP PO PRN (22:30)
[2022-07-10] MEDS ORDERED: GuaiFENesin/D-METHORPHAN [SUGAR-FREE] 200-20MG/10 ML SYRUP UDCUP PO PRN (22:30)
[2022-07-10] MEDS ORDERED: PETROLATUM,WHITE 28 GM JELLY TP PRN (22:30)
[2022-07-10] MEDS ORDERED: ALBUTEROL SULFATE HFA 90 MCG/PUFF 8 GM INHALER IH PRN (22:30)
[2022-07-11] VITALS (7 sets, daily range): BP systolic 126–155; BP diastolic 71–86
[2022-07-11] MEDS ORDERED: DIAZEPAM 10 MG TABLET PO PRN (14:00)
[2022-07-11] MEDS ORDERED: HydrOXYzine PAMOATE 50 MG CAPSULE PO PRN (14:00)
[2022-07-11] MEDS ORDERED: CYANOCOBALAMIN 1,000 MCG/ML VIAL IM ONE (14:00)
[2022-07-11] MEDS: MULTIVITAMINS WITH MINERALS, THERAPEUTIC TABLET PO SCH (15:44)
[2022-07-11] MEDS: FOLIC ACID 1 MG TABLET PO SCH (15:44)
[2022-07-11] MEDS: DULoxetine HCL 30 MG CAPSULE PO SCH (15:45)
[2022-07-11] MEDS: THIAMINE 100 MG TABLET PO SCH (17:55)
[2022-07-11] MEDS: TraZODone HCL 100 MG TABLET PO SCH (21:14)
[2022-07-11] MEDS: ZOLPIDEM TARTRATE 10 MG TABLET PO PRN (21:25)
[2022-07-12 06:33] LABS: BASOPHILS % (AUTO) 0.9 % (0.0-2.0); EOSINOPHILS % (AUTO) 3.3 % (1.0-6.0); HEMATOCRIT 40.1 % (41-53); HEMOGLOBIN 13.6 g/dL (13.5-17.5); LYMPHOCYTES # (AUTO) 1.4 K/uL (1.0-4.8); LYMPHOCYTES % (AUTO) 20.3 % (22.0-44.0); MEAN CORPUSCULAR HEMOGLOBIN 34.5 pg (26.0-34.0); MEAN CORPUSCULAR VOLUME 102 fL (80-100); MONOCYTES # (AUTO) 0.8 K/uL (0.1-1.0); MONOCYTES % (AUTO) 11.5 % (2.0-9.0); NEUTROPHILS # (AUTO) 4.5 K/uL (1.8-7.7); PLATELET COUNT (AUTO) 258 K/uL (150-450); RED BLOOD CELL COUNT(AUTO) 3.95 MIL/uL (4.50-5.90); RED CELL DISTRIBUTION WIDTH 15.7 % (11.5-14.5)
[2022-07-12] MEDS ORDERED: DIAZEPAM 10 MG TABLET PO PRN (07:00)
[2022-07-12 07:40] LABS: ALANINE AMINOTRANSFERASE 11 U/L (12-78); ALKALINE PHOSPHATASE 80 U/L (46-116); ANION GAP 7 mmol/L (8-16); ASPARTATE AMINOTRANSFERASE 12 U/L (15-37); BILIRUBIN,TOTAL 0.3 mg/dL (0.1-1.0); CALCIUM, TOTAL 8.3 mg/dL (8.8-10.5); CARBON DIOXIDE 28 mmol/L (22-29); CHLORIDE 104 mmol/L (98-107); CHOL/HDL RATIO 2.4 (4.2-7.3); CHOLESTEROL 129 mg/dL (131-200); CREATININE 0.71 mg/dL (0.60-1.30); GLUCOSE,RANDOM 102 mg/dL (70-110); HDL CHOLESTEROL 53 mg/dL (40-60); LDL CHOL (CALC.) 64 mg/dL (0-130); POTASSIUM 3.5 mmol/L (3.5-5.1); SODIUM SERUM 139 mmol/L (136-145); THYROID STIMULATING HORMONE 2.22 uIU/mL (0.36-3.74); TOTAL PROTEIN, SERUM 6.9 g/dL (6.4-8.2); TRIGLYCERIDES 58 mg/dL (15-150); UREA NITROGEN, BLOOD 7 mg/dL (7-18)
[2022-07-12 07:42] LABS: GLOMERULAR FILTR. RATE CALC > 60 mL/min (>60)
[2022-07-12] MEDS: MULTIVITAMINS WITH MINERALS, THERAPEUTIC TABLET PO SCH (08:35)
[2022-07-12] MEDS: FOLIC ACID 1 MG TABLET PO SCH (08:35)
[2022-07-12] MEDS: THIAMINE 100 MG TABLET PO SCH ×2 (08:35→16:40)
[2022-07-12] MEDS: DULoxetine HCL 30 MG CAPSULE PO SCH (08:35)
[2022-07-12] MEDS: DIAZEPAM 10 MG TABLET PO SCH ×4 (08:35→21:15)
[2022-07-12 09:12] VITALS: BP 163/96
[2022-07-12 11:13] VITALS: BP 100/65
[2022-07-12 13:24] VITALS: BP 111/59
[2022-07-12 13:56] VITALS: BP 111/59
[2022-07-12 16:21] VITALS: BP 145/78
[2022-07-12] MEDS: TraZODone HCL 100 MG TABLET PO SCH (21:15)
[2022-07-13 08:00] VITALS: BP 133/91
[2022-07-13] MEDS: DIAZEPAM 10 MG TABLET PO SCH ×4 (08:39→21:09)
[2022-07-13] MEDS: THIAMINE 100 MG TABLET PO SCH ×2 (08:39→16:17)
[2022-07-13] MEDS: FOLIC ACID 1 MG TABLET PO SCH (08:39)
[2022-07-13] MEDS: MULTIVITAMINS WITH MINERALS, THERAPEUTIC TABLET PO SCH (08:39)
[2022-07-13] MEDS: DULoxetine HCL 30 MG CAPSULE PO SCH (08:39)
[2022-07-13] MEDS: TraZODone HCL 100 MG TABLET PO SCH (21:09)
[2022-07-14] MEDS ORDERED: DIAZEPAM 5 MG TABLET PO PRN (07:00)
[2022-07-14] MEDS: MULTIVITAMINS WITH MINERALS, THERAPEUTIC TABLET PO SCH (08:40)
[2022-07-14] MEDS: FOLIC ACID 1 MG TABLET PO SCH (08:40)
[2022-07-14] MEDS: THIAMINE 100 MG TABLET PO SCH ×2 (08:40→16:59)
[2022-07-14] MEDS: DULoxetine HCL 30 MG CAPSULE PO SCH (08:40)
[2022-07-14] MEDS: DIAZEPAM 5 MG TABLET PO SCH ×4 (08:43→20:13)
[2022-07-14 09:07] VITALS: BP 149/83
[2022-07-14 16:36] VITALS: BP 160/81
[2022-07-14] MEDS: TraZODone HCL 100 MG TABLET PO SCH (20:14)
[2022-07-15] MEDS ORDERED: DIAZEPAM 5 MG TABLET PO PRN (07:00)
[2022-07-15] MEDS: MULTIVITAMINS WITH MINERALS, THERAPEUTIC TABLET PO SCH (08:58)
[2022-07-15] MEDS: THIAMINE 100 MG TABLET PO SCH ×2 (08:58→16:56)
[2022-07-15] MEDS: DULoxetine HCL 30 MG CAPSULE PO SCH (08:58)
[2022-07-15 08:59] VITALS: BP 154/83
[2022-07-15] MEDS: FOLIC ACID 1 MG TABLET PO SCH (09:00)
[2022-07-15] MEDS ORDERED: THIA100T80 PO (11:40)
[2022-07-15] MEDS ORDERED: DULO-114 PO (11:40)
[2022-07-15] MEDS ORDERED: TRAZ-257 PO (11:40)
[2022-07-15] MEDS ORDERED: MULT-1239 PO (11:40)
[2022-07-15] MEDS ORDERED: FOLI-130 PO (11:40)
== END 2022-07-15 16:35 | disposition home or self-care (01) | DRG 885 ==
LOC: EMS 03:31 → 3EI 07-10 09:00
PROVIDERS: ADMIT Psychiatry & Neurology Psychiatry; ATTEND Psychiatry & Neurology Psychiatry
DX: F33.2 Major depressive disorder, recurrent severe without psychotic features (principal); R45.851 Suicidal ideations; F10.20 Alcohol dependence, uncomplicated; Z20.822 Contact with and (suspected) exposure to COVID-19; F17.210 Nicotine dependence, cigarettes, uncomplicated; F41.9 Anxiety disorder, unspecified; R32 Unspecified urinary incontinence; G62.9 Polyneuropathy, unspecified; I10 Essential (primary) hypertension; R29.6 Repeated falls; Y90.6 Blood alcohol level of 120-199 mg/100 ml; Z79.899 Other long term (current) drug therapy; Z81.8 Family history of other mental and behavioral disorders; Z91.51 Personal history of suicidal behavior; Z71.41 Alcohol abuse counseling and surveillance of alcoholic; Z71.6 Tobacco abuse counseling
CPT/HCPCS: 70450; 72125; 80053; 80061; 80307; 83036; 84443; 85025; 99285; G0480; J3420; J3535

== ENCOUNTER 2023-10-02 12:57 | Inpatient (IN) | payer MEDICARE, MEDICAID ==
[~2023-10-02] VITALS: Ht 182.9 cm; Wt 78.9 kg
[~2023-10-02 12:57] MED LIST changes: -AMLO-257 PO; -ARIP5TAB37 PO; +DULO-114 PO; -DULO20CA71 PO; +FOLI-130 PO; -GABA-1181 PO; +MULT-1239 PO; -OXYB-34 PO; +THIA100T80 PO
[2023-10-02 14:50] LABS: COVID AG,FIA SOURCE NASAL SWAB
[2023-10-02 14:52] LABS: PH,URINE DRUG SCREEN 5.5 (5.0-8.0)
[2023-10-02 14:55] LABS: BASOPHILS % (AUTO) 0.6 % (0.0-2.0); EOSINOPHILS % (AUTO) 2.6 % (1.0-6.0); HEMATOCRIT 38.7 % (41-53); HEMOGLOBIN 12.7 g/dL (13.5-17.5); LYMPHOCYTES # (AUTO) 2.1 K/uL (1.0-4.8); LYMPHOCYTES % (AUTO) 24.2 % (22.0-44.0); MEAN CORPUSCULAR HEMOGLOBIN 29.6 pg (26.0-34.0); MEAN CORPUSCULAR HGB CONC 32.7 G/dL (31.0-37.0); MEAN CORPUSCULAR VOLUME 91 fL (80-100); MONOCYTES # (AUTO) 0.7 K/uL (0.1-1.0); MONOCYTES % (AUTO) 8.4 % (2.0-9.0); NEUTROPHILS # (AUTO) 5.4 K/uL (1.8-7.7); NEUTROPHILS % (AUTO) 64.2 % (40.0-70.0); PLATELET COUNT (AUTO) 371 K/uL (150-450); RED BLOOD CELL COUNT(AUTO) 4.27 MIL/uL (4.50-5.90); WHITE BLOOD COUNT (AUTO) 8.5 K/uL (4.5-11.0)
[2023-10-02 14:59] LABS: ALCOHOL, URINE DRUG SCREEN POSITIVE (NEGATIVE); AMPHET/METH SCREEN,URINE NEGATIVE (NEGATIVE); BARBITURATE SCREEN, URINE NEGATIVE (NEGATIVE); BENZODIAZEPINES SCREEN,URINE NEGATIVE (NEGATIVE); CANNABINOID SCREEN,URINE NEGATIVE (NEGATIVE); COCAINE SCREEN,URINE NEGATIVE (NEGATIVE); METHADONE SCREEN, URINE NEGATIVE (NEGATIVE); OPIATE SCREEN,URINE NEGATIVE (NEGATIVE); PHENCYCLIDINE SCREEN,URINE NEGATIVE (NEGATIVE)
[2023-10-02 15:01] LABS: ANION GAP 10 mmol/L (8-16); CALCIUM, TOTAL 8.6 mg/dL (8.8-10.5); CARBON DIOXIDE 30 mmol/L (22-29); CHLORIDE 104 mmol/L (98-107); GLOMERULAR FILTR. RATE CALC > 60 mL/min (>60); GLUCOSE,RANDOM 88 mg/dL (70-110); POTASSIUM 3.1 mmol/L (3.5-5.1); SODIUM SERUM 144 mmol/L (136-145); UREA NITROGEN, BLOOD 8 mg/dL (7-18)
[2023-10-02 15:06] LABS: ALANINE AMINOTRANSFERASE 13 U/L (12-78); ALBUMIN 3.1 g/dL (3.4-5.0); ALKALINE PHOSPHATASE 94 U/L (46-116); ASPARTATE AMINOTRANSFERASE 19 U/L (15-37); BILIRUBIN,TOTAL 0.2 mg/dL (0.1-1.0); TOTAL PROTEIN, SERUM 7.7 g/dL (6.4-8.2)
[2023-10-02 15:08] LABS: ALCOHOL, BLOOD (SERUM) 212 mg/dL (0-10)
[2023-10-02 15:13] LABS: SARS-COV2 (COVID) ANTIGEN,FIA Negative (Negative)
[2023-10-02 16:01] LABS: GLUCOMETER DEV NAME(LOC) ERT.5; GLUCOSE,POINT OF CARE 78 MG/DL (70-110)
[2023-10-02] MEDS: POTASSIUM CHLORIDE 20 MEQ ER TABLET PO ONE (16:21)
[2023-10-02] MEDS ORDERED: OLANZapine 5 MG RAPDIS TABLET PO PRN (17:15)
[2023-10-02 17:16] LABS: APPEARANCE,URINE CLEAR (CLEAR); BILIRUBIN,URINE NEGATIVE (NEGATIVE); COLOR,URINE LIGHT YELLOW (YELLOW); GLUCOSE, URINE (UA) NEGATIVE (NEGATIVE); KETONES,URINE NEGATIVE (NEGATIVE); LEUKOCYTE ESTERASE ,URINE NEGATIVE (NEGATIVE); NITRATE,URINE NEGATIVE (NEGATIVE); OCCULT BLOOD,URINE NEGATIVE (NEGATIVE); PH,URINE 5.5 (5.0-8.0); PROTEIN,URINE NEGATIVE (NEGATIVE); SPECIFIC GRAVITIY, URINE 1.008 (1.003-1.030); UROBILINOGEN,URINE <=1.0 mg/dL (<=1.0)
[2023-10-02] MEDS ORDERED: TUBERCULIN, PURIFIED PROTEIN DERIVATIVE 5 TU/0.1 ML SYRINGE ID ONE (19:45)
[2023-10-02] MEDS ORDERED: DIAZEPAM 10 MG TABLET PO PRN (19:45)
[2023-10-02] MEDS ORDERED: GuaiFENesin/D-METHORPHAN [SUGAR-FREE] 200-20MG/10 ML SYRUP UDCUP PO PRN (19:45)
[2023-10-02] MEDS ORDERED: PROMETHAZINE HCL 25 MG TABLET PO PRN (19:45)
[2023-10-02] MEDS ORDERED: LOPERAMIDE HCL 2 MG CAPSULE PO PRN (19:45)
[2023-10-02] MEDS ORDERED: MAGNESIUM HYDROXIDE SUSPENSION 30 ML UDCUP PO PRN (19:45)
[2023-10-02] MEDS ORDERED: MAG HYDROX/ALUMINUM HYD/SIMETH ES 30 ML SUSPENSION UDCUP PO PRN (19:45)
[2023-10-02] MEDS: CYANOCOBALAMIN 1,000 MCG/ML VIAL IM ONE (21:10)
[2023-10-02] MEDS: GABAPENTIN 300 MG CAPSULE PO SCH (21:11)
[2023-10-02] MEDS: MELATONIN 5 MG TABLET PO SCH (21:11)
[2023-10-02] MEDS: ZOLPIDEM TARTRATE 10 MG TABLET PO PRN (21:11)
[2023-10-02] MEDS: MIRTAZAPINE 15 MG TABLET PO SCH (21:19)
[2023-10-02] MEDS: THIAMINE 100 MG TABLET PO SCH (21:19)
[2023-10-03] VITALS (14 sets, daily range): BP systolic 102–120; BP diastolic 60–78; PULSE 52–96; RESP 16–19; TEMP 96.9–98.5; O2SAT 96–99
[2023-10-03 01:05] LABS: HEMOGLOBIN A1C 5.5 % (3.8-5.6)
[2023-10-03 01:18] LABS: CHOL/HDL RATIO 1.8 (4.2-7.3); FREE T4 (FREE THYROXINE) 0.87 ng/dL (0.76-1.46); THYROID STIMULATING HORMONE 1.99 uIU/mL (0.36-3.74)
[2023-10-03] MEDS ORDERED: PNEUMOCOCCAL VACCINE POLYVALENT 0.5 ML SYRINGE [PPSV23] IM. ONE (04:30)
[2023-10-03] MEDS ORDERED: DIAZEPAM 10 MG TABLET PO PRN (07:00)
[2023-10-03 07:01] LABS: POTASSIUM 3.8 mmol/L (3.5-5.1)
[2023-10-03] MEDS: OMEGA-3/DHA/EPA/FISH OIL 1,000 MG CAPSULE PO SCH (08:49)
[2023-10-03] MEDS: FOLIC ACID 1 MG TABLET PO SCH (08:49)
[2023-10-03] MEDS: NALTREXONE HCL 50 MG TABLET PO SCH (08:50)
[2023-10-03] MEDS: MULTIVITAMINS WITH MINERALS, THERAPEUTIC TABLET PO SCH (08:50)
[2023-10-03] MEDS: DIAZEPAM 10 MG TABLET PO SCH (09:00)
[2023-10-03] MEDS ORDERED: GABAPENTIN 300 MG CAPSULE PO SCH (09:00)
[2023-10-03] MEDS: ACETAMINOPHEN 325 MG TABLET PO PRN (12:47)
[2023-10-03] MEDS: NICOTINE 21 MG/24 HOUR PATCH TD SCH (12:47)
[2023-10-03] MEDS: TraZODone HCL 50 MG TABLET PO SCH (21:13)
[2023-10-04] VITALS (8 sets, daily range): BP systolic 91–111; BP diastolic 48–74; PULSE 65–93; RESP 17–19; TEMP 97.4–99; O2SAT 95–99
[2023-10-04] MEDS: DULoxetine HCL 20 MG CAPSULE PO SCH (09:34)
[2023-10-04] MEDS: GABAPENTIN 400 MG CAPSULE PO SCH (21:20)
[2023-10-05] MEDS: HydrOXYzine PAMOATE 50 MG CAPSULE PO PRN (03:24)
[2023-10-05 03:25] VITALS: BP 108/60; PULSE 75; RESP 18; TEMP 98; O2SAT 94
[2023-10-05 04:31] VITALS: PULSE 7; PULSE 77; RESP 18; TEMP 97.9
[2023-10-05] MEDS ORDERED: DIAZEPAM 5 MG TABLET PO PRN (07:00)
[2023-10-05 09:00] VITALS: BP 97/60; PULSE 83; RESP 18; TEMP 97.8; O2SAT 96
[2023-10-05] MEDS: DIAZEPAM 5 MG TABLET PO SCH (10:39)
[2023-10-05 14:17] VITALS: BP 97/50; PULSE 83; RESP 18; TEMP 97.8; O2SAT 96
[2023-10-05 20:07] VITALS: BP 105/70; PULSE 76; RESP 18; TEMP 98.1; O2SAT 98
[2023-10-05 21:49] VITALS: BP 105/70; PULSE 76; RESP 18; TEMP 98.1; O2SAT 98
[2023-10-06 00:08] VITALS: BP 113/64; PULSE 97; RESP 18; TEMP 97.1; O2SAT 98
[2023-10-06] MEDS: LOPERAMIDE HCL 2 MG CAPSULE PO PRN (01:44)
[2023-10-06] MEDS: LORazepam 2 MG TABLET PO PRN (01:44)
[2023-10-06] MEDS ORDERED: DIAZEPAM 5 MG TABLET PO PRN (07:00)
[2023-10-06 08:45] VITALS: BP 102/51; PULSE 74; RESP 18; TEMP 97.7; O2SAT 95
[2023-10-06 09:33] VITALS: BP 102/61; PULSE 74; RESP 18; TEMP 97.7; O2SAT 95
[2023-10-06 22:43] VITALS: BP 116/54; PULSE 78; RESP 18; TEMP 98.4; O2SAT 97
[2023-10-06 22:44] VITALS: BP 116/54; PULSE 78; RESP 18; TEMP 98; O2SAT 96
[2023-10-07 08:07] VITALS: BP 105/62; PULSE 83; RESP 18; TEMP 97.8; O2SAT 95
[2023-10-07] MEDS: DULoxetine HCL 30 MG CAPSULE PO SCH (09:11)
[2023-10-07 21:11] VITALS: BP 107/58; PULSE 88; RESP 18; TEMP 98; O2SAT 94
[2023-10-08 08:28] VITALS: BP 105/60; PULSE 74; RESP 18; TEMP 97.8; O2SAT 98
[2023-10-08 09:28] VITALS: BP 108/64; PULSE 76; RESP 18; TEMP 97.6
[2023-10-08 09:45] VITALS: BP 105/60; PULSE 74; RESP 18; TEMP 97.8; O2SAT 98
[2023-10-08 20:28] VITALS: BP 110/75; PULSE 78; RESP 18; TEMP 98.1; O2SAT 98
[2023-10-09 08:57] VITALS: BP 100/70; PULSE 80; RESP 18; TEMP 98.1; O2SAT 98
[2023-10-09 09:18] VITALS: BP 99/69; PULSE 80; RESP 18; TEMP 98; O2SAT 96
[2023-10-09 09:57] VITALS: RESP 18
[2023-10-09 20:13] VITALS: BP 108/74; PULSE 76; RESP 16; TEMP 98.1; O2SAT 98
[2023-10-09] MEDS: GABAPENTIN 300 MG CAPSULE PO SCH (20:36)
[2023-10-09] MEDS: TraZODone HCL 100 MG TABLET PO SCH (20:37)
[2023-10-10] MEDS: DULoxetine HCL 20 MG CAPSULE PO SCH (08:33)
[2023-10-10 21:14] VITALS: BP 104/77; PULSE 72; RESP 18; TEMP 97.1; O2SAT 98
[2023-10-11 04:11] VITALS: BP 110/79; PULSE 81; RESP 18; TEMP 98; O2SAT 97
[2023-10-11 05:11] VITALS: RESP 18
[2023-10-11 09:38] VITALS: BP 100/54; PULSE 72; RESP 20; TEMP 98.5; O2SAT 95
[2023-10-11 10:38] VITALS: RESP 17
[2023-10-11 20:05] VITALS: BP 102/71; PULSE 74; RESP 18; TEMP 97.3; O2SAT 98
[2023-10-12 08:01] VITALS: BP 113/58; PULSE 76; RESP 18; TEMP 98.9; O2SAT 95
[2023-10-12 09:00] VITALS: BP 113/58; PULSE 76; RESP 18; TEMP 98.9
[2023-10-12] MEDS: GABAPENTIN 400 MG CAPSULE PO SCH (09:02)
[2023-10-12] MEDS: PEG 400/HYPROMELLOSE/GLYCERIN 15 ML OPHTHALMIC SOLUTION OU PRN (17:15)
[2023-10-12 20:31] VITALS: BP 90/56; PULSE 78; RESP 19; TEMP 98.8; O2SAT 93
[2023-10-12] MEDS: TraZODone HCL 100 MG TABLET PO SCH (21:16)
[2023-10-13 08:39] VITALS: BP 119/58; PULSE 72; RESP 18; TEMP 98.8; O2SAT 95
[2023-10-13] MEDS: DULoxetine HCL 20 MG CAPSULE PO SCH (09:11)
[2023-10-13 09:27] VITALS: BP 121/67; PULSE 74; RESP 18; TEMP 98.6
[2023-10-13 10:27] VITALS: BP 99/49; PULSE 67; RESP 18; TEMP 98
[2023-10-13 20:29] VITALS: BP 114/62; PULSE 74; RESP 18; TEMP 97.9
[2023-10-13] MEDS: AMITRIPTYLINE HCL 10 MG TABLET PO SCH (20:52)
[2023-10-13] MEDS: TraZODone HCL 100 MG TABLET PO SCH (20:53)
[2023-10-14 21:49] VITALS: BP 96/56; PULSE 72; RESP 16; TEMP 98.7
[2023-10-15 09:20] VITALS: BP 96/52; PULSE 70; RESP 18; TEMP 99.1; O2SAT 96
[2023-10-15 20:50] VITALS: BP 112/62; PULSE 78; RESP 19; TEMP 97.9; O2SAT 98
[2023-10-15 21:34] VITALS: BP 124/57; PULSE 67; RESP 18; TEMP 98.6; O2SAT 97
[2023-10-15 21:58] VITALS: RESP 18
[2023-10-16 08:50] VITALS: PULSE 87; RESP 18; TEMP 97.8; O2SAT 97
[2023-10-16 08:56] VITALS: BP 96/49; PULSE 87; RESP 19; TEMP 97.8; O2SAT 97
[2023-10-16] MEDS ORDERED: OMEG-135 PO (13:17)
[2023-10-16] MEDS ORDERED: TRAZ-257 PO (13:17)
[2023-10-16] MEDS ORDERED: GABA-1201 PO (13:17)
[2023-10-16] MEDS ORDERED: MELA5TAB40 PO (13:17)
[2023-10-16] MEDS ORDERED: NALT50TA33 PO (13:17)
[2023-10-16] MEDS ORDERED: AMIT-166 PO (13:17)
[2023-10-16] MEDS ORDERED: DULO20CA71 PO (13:17)
== END 2023-10-16 18:24 | DRG 885 ==
LOC: EMS 13:08 → B2X 10-03 01:00 → 3EX 10-03 15:16
PROVIDERS: ADMIT Psychiatry & Neurology Psychiatry; ATTEND Psychiatry & Neurology Psychiatry
PROC: GZHZZZZ Group Psychotherapy (ICD-10-PCS; principal; 2023-10-03)
PROC: GZ51ZZZ Individual Psychotherapy, Behavioral (ICD-10-PCS; 2023-10-03)
PROC: GZ52ZZZ Individual Psychotherapy, Cognitive (ICD-10-PCS; 2023-10-03)
PROC: GZ56ZZZ Individual Psychotherapy, Supportive (ICD-10-PCS; 2023-10-04)
DX: F33.2 Major depressive disorder, recurrent severe without psychotic features (principal); F10.229 Alcohol dependence with intoxication, unspecified; Z59.00 Homelessness unspecified; R45.851 Suicidal ideations; Z20.822 Contact with and (suspected) exposure to COVID-19; F41.9 Anxiety disorder, unspecified; G47.00 Insomnia, unspecified; G62.9 Polyneuropathy, unspecified; F17.210 Nicotine dependence, cigarettes, uncomplicated; G89.29 Other chronic pain; J44.9 Chronic obstructive pulmonary disease, unspecified; K21.9 Gastro-esophageal reflux disease without esophagitis; F25.1 Schizoaffective disorder, depressive type; E87.6 Hypokalemia; I10 Essential (primary) hypertension; Z91.199 Patient's noncompliance with other medical treatment and regimen due to unspecified reason; Z79.899 Other long term (current) drug therapy
CPT/HCPCS: 80053; 80061; 80307; 81003; 82962; 83036; 84132; 84439; 84443; 85025; 86592; 87081; 97116; 97163; 97167; 97530; 97535; 99285; G0378; G0480; J3420; Q9967

== ENCOUNTER 2024-01-02 16:35 | Emergency (ER) | payer MEDICARE, MEDICAID ==
[~2024-01-02] VITALS: Ht 182.9 cm; Wt 75.6 kg
[~2024-01-02 16:35] MED LIST changes: +AMIT10TA7 PO; -DULO-114 PO; +DULO20CA71 PO; -FOLI-130 PO; +GABA-1201 PO; +MELA5TAB40 PO; -MULT-1239 PO; +NALT50TA33 PO; +OMEG-135 PO; -THIA100T80 PO
[2024-01-02 17:03] VITALS: TEMP 98.4
[2024-01-02 17:05] VITALS: BP 110/51; PULSE 78; RESP 16
[2024-01-03] MEDS ORDERED: CEPH-558 PO (02:29)
== END 2024-01-02 20:24 | disposition home or self-care (01) ==
LOC: EMS 16:35
DX: F10.10 Alcohol abuse, uncomplicated (principal); R07.9 Chest pain, unspecified; M79.10 Myalgia, unspecified site; I10 Essential (primary) hypertension; Y90.6 Blood alcohol level of 120-199 mg/100 ml
CPT/HCPCS: 71045; 93005; 99283; 99284

== ENCOUNTER 2024-01-02 21:53 | Inpatient (IN) | payer MEDICARE, MEDICAID ==
[~2024-01-02] VITALS: Ht 182.9 cm; Wt 71.8 kg
[2024-01-03 00:38] LABS: BASOPHILS % (AUTO) 0.6 % (0.0-2.0); HEMOGLOBIN 14.3 g/dL (13.5-17.5); LYMPHOCYTES # (AUTO) 2.3 K/uL (1.0-4.8); LYMPHOCYTES % (AUTO) 22.1 % (22.0-44.0); MEAN CORPUSCULAR HEMOGLOBIN 28.8 pg (26.0-34.0); MEAN CORPUSCULAR HGB CONC 32.4 G/dL (31.0-37.0); MEAN CORPUSCULAR VOLUME 89 fL (80-100); MONOCYTES # (AUTO) 0.8 K/uL (0.1-1.0); MONOCYTES % (AUTO) 7.7 % (2.0-9.0); NEUTROPHILS # (AUTO) 7.1 K/uL (1.8-7.7); NEUTROPHILS % (AUTO) 67.6 % (40.0-70.0); PLATELET COUNT (AUTO) 269 K/uL (150-450); RED BLOOD CELL COUNT(AUTO) 4.95 MIL/uL (4.50-5.90); RED CELL DISTRIBUTION WIDTH 15.8 % (11.5-14.5); WHITE BLOOD COUNT (AUTO) 10.5 K/uL (4.5-11.0)
[2024-01-03 00:41] LABS: ANION GAP 11 mmol/L (8-16); CALCIUM, TOTAL 9.3 mg/dL (8.8-10.5); CARBON DIOXIDE 28 mmol/L (22-29); CHLORIDE 102 mmol/L (98-107); GLOMERULAR FILTR. RATE CALC > 60 mL/min (>60); GLUCOSE,RANDOM 91 mg/dL (70-110); POTASSIUM 3.5 mmol/L (3.5-5.1); SODIUM SERUM 141 mmol/L (136-145); UREA NITROGEN, BLOOD 14 mg/dL (7-18)
[2024-01-03 00:47] LABS: ALANINE AMINOTRANSFERASE 12 U/L (12-78); ALBUMIN 3.5 g/dL (3.4-5.0); ALKALINE PHOSPHATASE 96 U/L (46-116); ASPARTATE AMINOTRANSFERASE 15 U/L (15-37); BILIRUBIN,TOTAL 0.4 mg/dL (0.1-1.0); TOTAL PROTEIN, SERUM 8.3 g/dL (6.4-8.2)
[2024-01-03] MEDS: ONDANSETRON HCL 4 MG TABLET PO ONE (01:40)
[2024-01-03] MEDS: FAMOTIDINE 20 MG TABLET PO ONE (01:40)
[2024-01-03 01:46] LABS: TROPONIN I-HIGH SENSITIVITY 9 ng/L (<76)
[2024-01-03] MEDS: OxyCODONE HCL/ACETAMINOPHEN 5-325 MG TABLET PO ONE (02:15)
[2024-01-03] MEDS ORDERED: CEPH-558 PO (02:29)
[2024-01-03] MEDS: CEPHALEXIN MONOHYDRATE 500 MG CAPSULE PO ONE (02:43)
[2024-01-03 03:06] LABS: COVID AG,FIA SOURCE NASAL SWAB
[2024-01-03 03:16] LABS: SARS-COV2 (COVID) ANTIGEN,FIA Negative (Negative)
[2024-01-03 21:00] VITALS: BP 151/47; PULSE 55; RESP 20; TEMP 98.8; O2SAT 98
[2024-01-03 22:27] VITALS: RESP 18
[2024-01-04] MEDS: ZOLPIDEM TARTRATE 10 MG TABLET PO PRN (01:11)
[2024-01-04] MEDS: HALOPERIDOL 5 MG TABLET PO PRN (01:58)
[2024-01-04] MEDS: LORazepam 2 MG TABLET PO PRN (01:58)
[2024-01-04 10:19] VITALS: BP 109/81; PULSE 65; RESP 18; TEMP 98.2; O2SAT 96
[2024-01-04] MEDS: GABAPENTIN 400 MG CAPSULE PO SCH (10:56)
[2024-01-04] MEDS: NALTREXONE HCL 50 MG TABLET PO SCH (12:59)
[2024-01-04] MEDS: DULoxetine HCL 60 MG CAPSULE PO SCH (13:00)
[2024-01-04] MEDS ORDERED: MAG HYDROX/ALUMINUM HYD/SIMETH ES 30 ML SUSPENSION UDCUP PO PRN (15:45)
[2024-01-04] MEDS ORDERED: ONDANSETRON HCL 4 MG TABLET PO PRN (15:45)
[2024-01-04] MEDS ORDERED: DOCUSATE SODIUM 100 MG CAPSULE PO PRN (15:45)
[2024-01-04] MEDS ORDERED: MAGNESIUM HYDROXIDE SUSPENSION 30 ML UDCUP PO PRN (15:45)
[2024-01-04] MEDS ORDERED: CloNIDine HCL 0.1 MG TABLET PO PRN (15:45)
[2024-01-04] MEDS ORDERED: GuaiFENesin/D-METHORPHAN [SUGAR-FREE] 200-20MG/10 ML SYRUP UDCUP PO PRN (15:45)
[2024-01-04] MEDS ORDERED: NICOTINE 14 MG/24 HOUR PATCH TD PRN (15:45)
[2024-01-04] MEDS ORDERED: LOPERAMIDE HCL 2 MG CAPSULE PO PRN (15:45)
[2024-01-04] MEDS ORDERED: ALBUTEROL SULFATE HFA 90 MCG/PUFF 8 GM INHALER IH PRN (15:45)
[2024-01-04] MEDS ORDERED: MELATONIN 5 MG TABLET PO SCH (21:00)
[2024-01-04] MEDS: AMITRIPTYLINE HCL 10 MG TABLET PO SCH (21:26)
[2024-01-04] MEDS: MELATONIN 5 MG TABLET PO SCH (21:26)
[2024-01-04] MEDS: TraZODone HCL 100 MG TABLET PO SCH (21:26)
[2024-01-04 23:46] VITALS: BP 94/55; PULSE 78; RESP 18; TEMP 98.5; O2SAT 95
[2024-01-05] MEDS: OMEGA-3/DHA/EPA/FISH OIL 1,000 MG CAPSULE PO SCH (08:45)
[2024-01-05 13:42] LABS: HEMOGLOBIN A1C 5.7 % (3.8-5.6)
[2024-01-05 14:13] LABS: THYROID STIMULATING HORMONE 0.72 uIU/mL (0.36-3.74)
[2024-01-05 21:33] VITALS: BP 88/45; PULSE 63; RESP 18; TEMP 98.4; O2SAT 95
[2024-01-06 10:59] VITALS: BP 101/55; PULSE 85; RESP 18; TEMP 97.2; O2SAT 97
[2024-01-06] MEDS ORDERED: DULO-113 PO (15:04)
[2024-01-06] MEDS ORDERED: PREG300C20 PO (15:04)
[2024-01-06] MEDS: GABAPENTIN 300 MG CAPSULE PO SCH (16:40)
[2024-01-06 20:45] VITALS: BP 84/46; PULSE 60; RESP 18; TEMP 98.1; O2SAT 95
[2024-01-07 11:20] VITALS: BP 109/52; PULSE 96; RESP 19; TEMP 98.2; O2SAT 96
[2024-01-07 20:28] VITALS: BP 98/65; PULSE 62; RESP 18; TEMP 98.2; O2SAT 98
[2024-01-08 09:00] VITALS: BP 103/50; PULSE 60; RESP 19; TEMP 97; O2SAT 93
[2024-01-08 21:40] VITALS: BP 110/70; PULSE 80; RESP 18; TEMP 97.5; O2SAT 97
[2024-01-08] MEDS: IBUPROFEN 400 MG TABLET PO PRN (21:45)
[2024-01-08 21:53] VITALS: BP 98/55; PULSE 61; RESP 18; TEMP 98.9; O2SAT 96
[2024-01-08 22:45] VITALS: RESP 19
[2024-01-09 09:00] VITALS: BP 89/47; PULSE 56; RESP 19; TEMP 97.7
[2024-01-09] MEDS: PETROLATUM,WHITE 28 GM JELLY TP PRN (21:35)
[2024-01-09 22:10] VITALS: BP 78/68; PULSE 58; RESP 18; TEMP 98.7
[2024-01-10 10:04] VITALS: BP 80/59; PULSE 65; RESP 17; TEMP 98
[2024-01-10 13:36] VITALS: BP 90/60; PULSE 70; RESP 18; TEMP 97; O2SAT 96
[2024-01-10] MEDS: ACETAMINOPHEN 325 MG TABLET PO PRN (13:36)
[2024-01-10 23:03] VITALS: BP 96/47; PULSE 55; RESP 18; TEMP 97.9; O2SAT 96
[2024-01-11 08:25] VITALS: BP 103/69; PULSE 63; RESP 16; TEMP 98.7; O2SAT 97
[2024-01-11 13:03] VITALS: BP 98/60; RESP 17; TEMP 98.4
[2024-01-11 14:01] VITALS: BP 100/65; PULSE 56; RESP 17; TEMP 97
[2024-01-11 21:48] VITALS: BP 92/65; RESP 18; TEMP 98.1; O2SAT 97
[2024-01-12 08:15] VITALS: BP 99/69; PULSE 58; RESP 16; TEMP 98.1; O2SAT 97
[2024-01-12 23:00] VITALS: BP 88/69; PULSE 75; RESP 17; TEMP 98; O2SAT 98
[2024-01-13 23:13] VITALS: BP 118/75; PULSE 74; RESP 18; TEMP 97.9; O2SAT 99
[2024-01-14 05:34] LABS: CHOL/HDL RATIO 2.3 (4.2-7.3)
[2024-01-14 09:50] VITALS: BP 69/46; PULSE 70; RESP 18; TEMP 96.7; O2SAT 97
[2024-01-14 23:00] VITALS: BP 93/39; PULSE 88; RESP 19; TEMP 100.2; O2SAT 97
[2024-01-15] VITALS: TEMP 99.5
[2024-01-15 02:00] VITALS: BP 98/42; PULSE 86; TEMP 98.5
[2024-01-15 08:30] VITALS: BP 86/51; PULSE 80; RESP 16; TEMP 99.5; O2SAT 91
[2024-01-15] MEDS: GABAPENTIN 300 MG CAPSULE PO SCH (09:00)
[2024-01-15] MEDS: ACETAMINOPHEN 500 MG TABLET PO ONE (09:25)
[2024-01-15 09:31] LABS: BASOPHILS % (AUTO) 0.3 % (0.0-2.0); EOSINOPHILS % (AUTO) 0.1 % (1.0-6.0); HEMATOCRIT 35.8 % (41-53); HEMOGLOBIN 11.6 g/dL (13.5-17.5); LYMPHOCYTES # (AUTO) 1.9 K/uL (1.0-4.8); LYMPHOCYTES % (AUTO) 7.2 % (22.0-44.0); MEAN CORPUSCULAR HEMOGLOBIN 28.8 pg (26.0-34.0); MEAN CORPUSCULAR HGB CONC 32.3 G/dL (31.0-37.0); MEAN CORPUSCULAR VOLUME 89 fL (80-100); MONOCYTES % (AUTO) 7.7 % (2.0-9.0); NEUTROPHILS # (AUTO) 22.3 K/uL (1.8-7.7); NEUTROPHILS % (AUTO) 84.7 % (40.0-70.0); PLATELET COUNT (AUTO) 269 K/uL (150-450); RED BLOOD CELL COUNT(AUTO) 4.02 MIL/uL (4.50-5.90); RED CELL DISTRIBUTION WIDTH 15.8 % (11.5-14.5); WHITE BLOOD COUNT (AUTO) 26.3 K/uL (4.5-11.0)
[2024-01-15 09:49] LABS: ANION GAP 6 mmol/L (8-16); CALCIUM, TOTAL 8.1 mg/dL (8.8-10.5); CARBON DIOXIDE 30 mmol/L (22-29); CHLORIDE 95 mmol/L (98-107); CREATININE 1.01 mg/dL (0.60-1.30); GLOMERULAR FILTR. RATE CALC > 60 mL/min (>60); GLUCOSE,RANDOM 140 mg/dL (70-110); POTASSIUM 3.7 mmol/L (3.5-5.1); SODIUM SERUM 131 mmol/L (136-145); UREA NITROGEN, BLOOD 13 mg/dL (7-18)
[2024-01-15 10:39] LABS: COVID AG,FIA SOURCE NASAL SWAB
[2024-01-15 11:01] LABS: SARS-COV2 (COVID) ANTIGEN,FIA Negative (Negative)
[2024-01-15 11:03] LABS: INFLUENZA TYPE A NEGATIVE FOR TYPE A (NEGATIVE); INFLUENZA TYPE B NEGATIVE FOR TYPE B (NEGATIVE)
== END 2024-01-15 18:35 | disposition short-term general hospital (02) | DRG 885 ==
LOC: EMS 21:53 → EDBEDREQSVC 01-03 04:10 → 3EX 01-03 15:31
PROVIDERS: ADMIT Psychiatry & Neurology Child & Adolescent Psychiatry; ATTEND Psychiatry & Neurology Child & Adolescent Psychiatry
PROC: GZHZZZZ Group Psychotherapy (ICD-10-PCS; principal; 2024-01-04)
PROC: GZ52ZZZ Individual Psychotherapy, Cognitive (ICD-10-PCS; 2024-01-04)
PROC: GZ56ZZZ Individual Psychotherapy, Supportive (ICD-10-PCS; 2024-01-04)
DX: F33.2 Major depressive disorder, recurrent severe without psychotic features (principal); A41.9 Sepsis, unspecified organism; R45.851 Suicidal ideations; F41.9 Anxiety disorder, unspecified; G47.00 Insomnia, unspecified; I10 Essential (primary) hypertension; R10.9 Unspecified abdominal pain; F10.90 Alcohol use, unspecified, uncomplicated; L30.9 Dermatitis, unspecified; G62.9 Polyneuropathy, unspecified; Z20.822 Contact with and (suspected) exposure to COVID-19; I95.9 Hypotension, unspecified; Y90.9 Presence of alcohol in blood, level not specified; Z79.899 Other long term (current) drug therapy
CPT/HCPCS: 71046; 80048; 80061; 80076; 83036; 84443; 84484; 85025; 87804; 99285; G0378; Q0162; 36415-L1; 36415-TC